=== PATIENT | male | born 1970 | race African-American/Black ===

== ENCOUNTER 2017-08-20 11:53 | Emergency (ER) | payer SELFPAY ==
[2017-08-20] MEDS ORDERED: HYDROcodone/Acetaminophen 5/325 mg Tablet ONE (12:20)
== END 2017-08-20 12:20 | disposition home or self-care (01) ==
LOC: SCSER 11:53
DX: M10.9 Gout, unspecified (principal); I10 Essential (primary) hypertension; F17.210 Nicotine dependence, cigarettes, uncomplicated
CPT/HCPCS: 99283

== ENCOUNTER 2018-04-02 17:56 | Day surgery (SDC) | payer SELFPAY ==
[2018-04-02] MEDS ORDERED: Ibuprofen 800 MG TAB ONE (18:27)
--- NOTE | 2018-04-02 19:02 | RAD ---
RIGHT THUMB THREE VIEWS: 04/02/18 HISTORY: 47-year-old male with history of pain following an injury. Hit hand at work with right thumb swelling . There is a dislocation of the trapezium first metacarpal joint with some small associated bone fractu re fragments. There is some resultant foreshortening and radial displacement. IMPRESSION: Fracture dislocation of the trapezium first metacarpal joint with some radial foreshortening and smal l fracture fragments associated with this dislocation. POS: [facility]
[2018-04-02 20:14] LABS: #Basophils 0.1 thou/uL (0.0-0.2); #Eosinphils 0.1 thou/uL (0.0-0.7); #Lymphocytes 1.9 thou/uL (1.20-3.40); #Monocytes 0.4 thou/uL (0.11-0.59); #Neutrophils 3.1 thou/uL (1.40-6.50); %Basophils 1.8 % (0.0-1.0); %Eosinophils 2.3 % (0.0-10.0); %Lymphocytes 33.6 % (21.0-51.0); %Monocytes 7.1 % (0.0-10.0); %Neutrophils 55.2 % (42.0-75.0); Hemoglobin 13.9 g/dL (14.0-18.0); Mean Corpuscular HGB CONC 31.9 g/dL (32.0-36.0); Mean Corpuscular Hemoglobin 30.6 pg (27.0-31.0); Mean Corpuscular Volume 96.1 fL (78.0-98.0); Mean Platelet Volume 7.6 fL (7.4-10.4); Platelet Count 268 thou/uL (130-400); RBC Distribution Width 12.8 % (11.5-14.5); Red Blood Cell (RBC) Count 4.55 mill/uL (4.70-6.10); White Blood Cell (WBC) Count 5.7 thou/uL (4.8-10.8)
[2018-04-02 20:35] LABS: ALT (SGPT) 19 U/L (8-55); AST (SGOT) 26 U/L (5-34); Albumin 4.3 g/dL (3.5-5.0); Alkaline Phosphatase 81 U/L (40-150); Anion Gap 13 mmol/L (10-20); BUN (Urea Nitrogen) 15 mg/dL (8.9-20.6); Bilirubin, Total 0.6 mg/dL (0.2-1.2); Calc. Creatinine Clearance 0 mL/min (70-130); Calcium 9.1 mg/dL (7.8-10.44); Carbon Dioxide 21 mmol/L (22-29); Chloride 108 mmol/L (98-107); Estimated GFR-MDRD 53; Globulin 3.2 g/dL (2.4-3.5); Glucose 97 mg/dL (70-105); Protein, Total 7.5 g/dL (6.0-8.3); Sodium 138 mmol/L (136-145)
[2018-04-02] MEDS ORDERED: CEFAZOLIN 2 GM/50 ML BAG ONE (20:57)
[2018-04-02] MEDS ORDERED: Fentanyl 100 MCG/2 ML VIAL ONE ×2 (21:18→21:36)
--- NOTE | 2018-04-02 22:28 | RAD ---
RIGHT THUMB THREE VIEWS: 04/02/18 HISTORY: 47-year-old male with history of pinning of right thumb fracture dislocation. Two Steinmann pins have been placed stabilizing the trapezium first metacarpal joint region with reduction of the previously noted dislocation. IMPRESSION: Two Steinmann pins stabilizing the trapezium first metacarpal joint. POS: [facility]
--- NOTE | 2018-04-03 04:08 | OP ---
DATE OF OPERATION: 04/02/2018 PREOPERATIVE DIAGNOSIS: Dislocation of the first carpometacarpal joint at the base of the right thum b. POSTOPERATIVE DIAGNOSIS: Dislocation of the first carpometacarpal joint at the base of the right leonidas mb. PROCEDURE: Closed reduction, percutaneous pinning of the first carpometacarpal joint of the right th umb. SURGEON: Rahul Perez M.D. ANESTHESIA: General. TECHNIQUE: The patient was given preoperative IV antibiotics, taken to the operating room, placed in supine position. Satisfactory general anesthesia was performed. The right hand and wrist and forea rm were sterilely prepped and draped in the usual fashion. The first carpometacarpal joint was manip ulated by placing traction on the thumb and reducing the base of the first metacarpal into the correc t spot over the trapezium. C-arm verified. Good reduction of the first carpometacarpal joint. Two 0.062 K-wires were then used from the base of the first metacarpal and into the trapezium to provide stability for the joint. The pins were cut protruding out of the skin and Jurgan's balls were applie d to the pins. Sterile dressing was applied along with a short arm thumb spica splint. The patient was then awakened, extubated, and transferred to the recovery room in stable condition. ESTIMATED BLOOD LOSS: None. COMPLICATIONS: None. TOURNIQUET TIME: None. DISCHARGE MEDICATIONS: [place] 10 one every 6 hours as needed for pain, #40 with no refills. Follow up in my office in 1 week.
== END 2018-04-02 23:02 | disposition home or self-care (01) ==
LOC: ERS 17:56 → SDC/OP 20:36
PROVIDERS: ATTEND Orthopaedic Surgery
PROC: 0PSP34Z Reposition Right Metacarpal with Internal Fixation Device, Percutaneous Approach (ICD-10-PCS; principal; 2018-04-02)
DX: S63.044A Dislocation of carpometacarpal joint of right thumb, initial encounter (principal); S62.201A Unspecified fracture of first metacarpal bone, right hand, initial encounter for closed fracture; M10.9 Gout, unspecified; F17.210 Nicotine dependence, cigarettes, uncomplicated; I10 Essential (primary) hypertension; Z79.899 Other long term (current) drug therapy; Z91.14 Patient's other noncompliance with medication regimen; W01.0XXA Fall on same level from slipping, tripping and stumbling without subsequent striking against object, initial encounter
CPT/HCPCS: 36415; 76000; 80053; 85025; J3010

== ENCOUNTER 2019-03-13 21:40 | Emergency (ER) | payer SELFPAY | END 2019-03-13 22:21 | disposition home or self-care (01) | LOC: ERS 21:40 | DX: I83.891 Varicose veins of right lower extremity with other complications (principal); I10 Essential (primary) hypertension; M10.9 Gout, unspecified; F17.210 Nicotine dependence, cigarettes, uncomplicated | CPT/HCPCS: 99283 ==

== ENCOUNTER 2019-06-24 10:34 | Emergency (ER) | payer SELFPAY | END 2019-06-24 11:13 | disposition home or self-care (01) | LOC: ERS 10:34 | DX: M10.9 Gout, unspecified (principal); I10 Essential (primary) hypertension; F17.210 Nicotine dependence, cigarettes, uncomplicated | CPT/HCPCS: 99283 ==

== ENCOUNTER 2019-07-24 15:14 | Emergency (ER) | payer SELFPAY ==
[2019-07-24] MEDS ORDERED: HYDROcodone/Acetaminophen 10/325 mg Tablet ONE (15:55)
--- NOTE | 2019-07-24 16:00 | RAD ---
EXAM: XR Knee Lt 4 View STANDARD PROVIDED CLINICAL HISTORY: Pain FINDINGS: There is no evidence for fracture or other acute osseous abnormality. Alignment appears anatomic. Keshia nt spaces appear preserved. Moderate knee joint capsular distention, likely reflecting effusion. IMPRESSION: No evidence for an acute osseous abnormality. If there is persistent clinical concern, conservative m anagement and follow-up imaging advised.
[2019-07-24] MEDS ORDERED: predniSONE 20 MG TAB ONE ×2 (16:32→16:33)
== END 2019-07-24 16:40 | disposition home or self-care (01) ==
LOC: ERS 15:14
DX: M25.562 Pain in left knee (principal); M10.9 Gout, unspecified; I10 Essential (primary) hypertension; F17.210 Nicotine dependence, cigarettes, uncomplicated; Z79.899 Other long term (current) drug therapy
CPT/HCPCS: J7512

== ENCOUNTER 2019-08-09 11:52 | Emergency (ER) | payer SELFPAY ==
[2019-08-09] MEDS ORDERED: HYDROcodone/Acetaminophen 10/325 mg Tablet ONE ×2 (12:04→12:07)
== END 2019-08-09 13:02 | disposition home or self-care (01) ==
LOC: ERS 11:52
DX: M10.9 Gout, unspecified (principal); I10 Essential (primary) hypertension
CPT/HCPCS: 99283

== ENCOUNTER 2019-10-27 09:36 | Emergency (ER) | payer SELFPAY ==
[2019-10-27] MEDS ORDERED: HYDROcodone/Acetaminophen 10/325 mg Tablet ONE ×2 (10:20→10:24)
--- NOTE | 2019-10-27 11:17 | RAD ---
RIGHT FOOT 3 VIEWS: Date: 10/27/2019 HISTORY: Right foot swelling, gout. FINDINGS/IMPRESSION: Comparison made with exam of 02/28/2013. There is subchondral cyst formation and cortical irregularity involving the medial aspect of the head of the first metatarsal with adjacent soft tissue swelling medial to the first MTP joint. No acute f racture or dislocation is seen. POS: [facility]
== END 2019-10-27 10:30 | disposition home or self-care (01) ==
LOC: ERS 09:36
DX: M10.9 Gout, unspecified (principal); I10 Essential (primary) hypertension

== ENCOUNTER 2020-02-14 10:14 | Emergency (ER) | payer SELFPAY | END 2020-02-14 11:10 | disposition home or self-care (01) | LOC: ERS 10:14 | DX: M10.9 Gout, unspecified (principal); I10 Essential (primary) hypertension | CPT/HCPCS: 99283 ==

== ENCOUNTER 2020-03-09 09:30 | Emergency (ER) | payer SELFPAY ==
[2020-03-09] MEDS ORDERED: Lidocaine 1% w/Epinephrine 1:100K 20 ML VIAL ONE (09:44)
[2020-03-09] MEDS ORDERED: HYDROcodone/Acetaminophen 5/325 mg Tablet ONE (09:44)
[2020-03-09] MEDS ORDERED: Boostrix 0.5 ML VIAL ONE (09:46)
== END 2020-03-09 11:07 | disposition home or self-care (01) ==
LOC: ERS 09:30
DX: N49.2 Inflammatory disorders of scrotum (principal); M10.9 Gout, unspecified; I10 Essential (primary) hypertension
CPT/HCPCS: 55100; 90471; 90715

== ENCOUNTER 2020-05-22 14:00 | Emergency (ER) | payer OTHER, SELFPAY ==
[~2020-05-22 14:00] MED LIST: Iopamidol-370 76% 500 ML 1 ML ONE
--- NOTE | 2020-05-22 14:52 | RAD ---
XR Chest 1 View Portable History: Chest pain Comparison: None. Findings: Heart size is enlarged. Mild lung hyperinflation with scattered atelectasis. No confluent a irspace consolidation, pneumothorax or effusion. Impression: Mild lung hypoinflation and cardiomegaly.
[2020-05-22] MEDS ORDERED: Nitroglycerin 2% Ointment 1 INCH/1 GM Packet ONE (15:05)
[2020-05-22] MEDS ORDERED: Aspirin Chewable 81 MG TAB ONE (15:05)
[2020-05-22] MEDS ORDERED: Nitroglycerin 0.4 MG TAB 1 EACH ONE (15:05)
[2020-05-22 15:08] LABS: #Eosinphils 0.2 thou/uL (0.0-0.7); #Monocytes 0.5 thou/uL (0.11-0.59); #Neutrophils 3.8 thou/uL (1.40-6.50); %Basophils 0.4 % (0.0-1.0); %Eosinophils 2.4 % (0.0-10.0); %Lymphocytes 30.9 % (21.0-51.0); %Monocytes 8.1 % (0.0-10.0); %Neutrophils 58.2 % (42.0-75.0); Hemoglobin 15.3 g/dL (14.0-18.0); Mean Corpuscular HGB CONC 32.9 g/dL (32.0-36.0); Mean Corpuscular Hemoglobin 30.3 pg (27.0-31.0); Mean Corpuscular Volume 92.2 fL (78.0-98.0); Mean Platelet Volume 7.6 fL (7.4-10.4); Platelet Count 333 thou/uL (130-400); RBC Distribution Width 12.7 % (11.5-14.5); Red Blood Cell (RBC) Count 5.03 mill/uL (4.70-6.10); White Blood Cell (WBC) Count 6.6 thou/uL (4.8-10.8)
[2020-05-22 15:32] LABS: ALT (SGPT) 21 U/L (8-55); AST (SGOT) 35 U/L (5-34); Albumin 4.2 g/dL (3.5-5.0); Alkaline Phosphatase 95 U/L (40-110); Anion Gap 14 mmol/L (10-20); BUN (Urea Nitrogen) 20 mg/dL (8.9-20.6); Bilirubin, Total 0.5 mg/dL (0.2-1.2); Calc. Creatinine Clearance 0 mL/min (70-130); Calcium 9.3 mg/dL (7.8-10.44); Carbon Dioxide 25 mmol/L (22-29); Chloride 104 mmol/L (98-107); Globulin 4.3 g/dL (2.4-3.5); Glucose 97 mg/dL (70-105); Lipase 12 U/L (8-78); Potassium 4.9 mmol/L (3.5-5.1); Protein, Total 8.5 g/dL (6.0-8.3); Sodium 138 mmol/L (136-145)
--- NOTE | 2020-05-22 16:40 | CT ---
EXAM: CT ANGIOGRAM CHEST WITH 3D RENDERIN05/22/20 HISTORY: Chest pain, elevated D-dimer. Two day history of constant left sided chest pain. FINDINGS: No convincing CT evidence for acute pulmonary embolism. No evidence for aortic aneurysm. No pleural o r peripheral effusion. No acute pulmonary parenchymal process. No evidence for pneumonia. Visualized upper abdomen is unremarkable. No mediastinal mass or adenopathy. IMPRESSION: No convincing CT evidence for acute pulmonary embolism or other significant acute process. POS: [facility]
== END 2020-05-22 17:10 ==
LOC: EEVIPCON 14:00 → ERS 14:00
DX: R07.9 Chest pain, unspecified (principal); I10 Essential (primary) hypertension; M10.9 Gout, unspecified
CPT/HCPCS: 36415; 71045; 71275; 80053; 83690; 84484; 85025; 85379; 93005; 94760; Q9967